=== PATIENT | male | born 1965 | race Asian ===

== ENCOUNTER 2023-02-09 08:51 | Emergency (ER) | payer OTHER ==
[2023-02-09 08:59] VITALS: RESP 16; TEMP 97.8; BMI 25.0
[2023-02-09 09:28] VITALS: BP 148/81; PULSE 86
== END 2023-02-09 10:44 | disposition home or self-care (01) ==
LOC: JER 08:51
DX: M25.562 Pain in left knee (principal); M25.462 Effusion, left knee; V49.40XA Driver injured in collision with unspecified motor vehicles in traffic accident, initial encounter; Y93.I9 Activity, other involving external motion
CPT/HCPCS: 73562-TC-LT-FY; 99283-25